=== PATIENT | female | born 1960 ===

== ENCOUNTER 2016-05-20 15:58 | Emergency (ER) | payer BC ==
[2016-05-20 16:05] VITALS: RESP 16; TEMP 98.4; O2SAT 99
[2016-05-20 16:33] VITALS: BP 131/83; PULSE 86
[2016-05-20 17:03] LABS: BASO # 0.1 K/uL (0.0-0.2); BASO % 0.6 % (0.0-2.0); EOS % 0.2 % (0.0-4.0); HEMATOCRIT 35.3 % (34.0-47.0); LYMPH # 1.8 K/uL (1.0-4.3); LYMPH % 18.6 % (20.0-40.0); MEAN CORPUSCULAR HEMOGLOBIN 27.7 pg (27.0-31.0); MEAN CORPUSCULAR HGB CONC 32.2 g/dL (33.0-37.0); MEAN PLATELET VOLUME 8.2 fl (7.2-11.7); MONO # 0.5 K/uL (0.0-0.8); MONO % 5.7 % (0.0-10.0); NEUT # 7.1 K/uL (1.8-7.0); NEUT % 74.9 % (50.0-75.0); RED CELL DISTRIBUTION WIDTH 17.4 % (11.5-14.5); WHITE BLOOD COUNT 9.4 K/uL (4.8-10.8)
--- NOTE | 2016-05-20 17:03 | ED PDOC ---
HPI: Chest Pain Time Seen by Provider: 05/20/16 16:24 Chief Complaint (Nursing): Palpitations Chief Complaint (Provider): Palpitations History Per: Patient History/Exam Limitations: no limitations Onset/Duration Of Symptoms: Hrs Additional Complaint(s): 16:24 Giovana Plunkett is a 55 year old female with no past medical history that is accompanied by her daughter and presents to the ED with a chief complaint of palpitations. Patient's daughter states that while the patient was at work today, she got into an argument with one of her coworkers, which resulted in her crying for a long amount of time. Patient began to experience chest pain and a headache, so she went to her PMD Dr. Perez, who told the patient that her blood pressure was at 180, and referred her to the ED for further care. Past Medical History Reviewed: Historical Data, Nursing Documentation, Vital Signs Vital Signs: Last Vital Signs Temp 98.4 F 05/20/16 16:04 Pulse 86 05/20/16 16:32 Resp 16 05/20/16 16:04 BP 131/83 05/20/16 16:32 Pulse Ox 99 05/20/16 18:19 - Medical History PMH: No Chronic Diseases - Family History Family History: States: Unknown Family Hx - Social History Current smoker - smoking cessation education provided: No Alcohol: None - Immunization History Hx Tetanus Toxoid Vaccination: No Hx Influenza Vaccination: No Hx Pneumococcal Vaccination: No - Home Medications Home Medications: Ambulatory Orders Medication Instructions Recorded No Known Home Med 05/20/16 - Allergies Allergies/Adverse Reactions: Allergies Allergy/AdvReac Type Severity Reaction Status Date / Time No Known Allergies Allergy Verified 05/20/16 16:04 CORINNE Risk Score for UA/NSTEMI - CORINNE Risk Score Age > 64: NO 3 or more CAD Risk Factors: NO Known CAD (Stenosis greater than 50%): NO Aspirin use in past 7 days: NO Severe Angina: NO EKG ST changes greater than 0.5mm: NO Positive Cardiac Marker: NO CORINNE Score: 0 Risk %: 5% Wells Criteria for PE - Wells Criteria for Pulmonary Embolism Clinical Signs and Symptoms of DVT: No P.E is #1 Diagnosis, or Equally Likely: No Heart Rate >100: No Immobilization at least 3 days;Surgery previous 4 weeks: No Previous, objectively diagnosed PE or DVT: No Hemoptysis: No Malignancy w/treatment within 6 months, or palliative: No Total Score: 0 Review of Systems Cardiovascular: Positive for: Chest Pain Neurological: Positive for: Headache Physical Exam - Reviewed Nursing Documentation Reviewed: Yes Vital Signs Reviewed: Yes - Physical Exam Appears: Positive for: Non-toxic, No Acute Distress Head Exam: Positive for: ATRAUMATIC, NORMOCEPHALIC Skin: Positive for: Normal Color, Warm Eye Exam: Positive for: Normal appearance Cardiovascular/Chest: Positive for: Regular Rate, Rhythm. Negative for: Murmur Respiratory: Positive for: Normal Breath Sounds. Negative for: Wheezing Neurologic/Psych: Positive for: Alert, Oriented - Laboratory Results Result Diagrams: 05/20/16 16:59 05/20/16 16:59 - ECG O2 Sat by Pulse Oximetry: 99 (RA) Pulse Ox Interpretation: Normal Medical Decision Making Medical Decision Makin:44 Initial Impression: Palpitations as a Result of Anxiety Attack Initial Plan: * CMP * CBC * TSH * PTT * PT * Troponin * D-Dimer * Urine dip * Urinalysis * Chest X-Ray * Tylenol 650 mg PO * Reevaluation 18:10 EKG reviewed, NSR at 84, no ST changes. Copy of labs, EKG and CXR given to patient. Scribe Attestation: Documented by Zulema Carrasco, acting as a scribe for Salome Giles MD. Provider Scribe Attestation: All medical record entries made by the Scribe were at my direction and personally dictated by me. I have reviewed the chart and agree that the record accurately reflects my personal performance of the history, physical exam, medical decision making, and the department course for this patient. I have also personally directed, reviewed, and agree with the discharge instructions and disposition. Disposition - Clinical Impression Clinical Impression: Palpitations - Disposition Referrals: Ambreen Perez [Staff Provider] - Disposition: Routine/Home Disposition Time: 18:05 Condition: IMPROVED Instructions: Palpitations (ED) Forms: [facility] ED School/Work Excuse Print Language: KAZAKH
[2016-05-20 17:15] LABS: BLOOD UREA NITROGEN 14 mg/dl (7-17); CALCIUM 9.5 mg/dL (8.4-10.2); CARBON DIOXIDE 25 mmol/L (22-30); CHLORIDE 103 mmol/L (98-107); GFR AFRICAN-AMERICAN > 60; GLUCOSE,RANDOM 112 mg/dL (65-105); POTASSIUM 3.7 MMOL/L (3.6-5.0); SODIUM 144 mmol/l (132-148); TOTAL PROTEIN 8.1 G/DL (6.3-8.2)
[2016-05-20 17:16] LABS: ALB/GLOB RATIO 1.3 (1.0-2.1); ALKALINE PHOSPHATASE 93 U/L (38-126); ALT/SGPT 33 U/L (9-52); AST/SGOT 25 U/L (14-36); BILIRUBIN,TOTAL 0.4 mg/dl (0.2-1.3)
[2016-05-20 17:26] LABS: RBC URINE 5 /hpf (0-3); URINE BACTERIA OCC (<OCC); URINE BILIRUBIN NEGATIVE (NEGATIVE); URINE BLOOD MODERATE (NEGATIVE); URINE COLOR YELLOW (YELLOW); URINE GLUCOSE (UA) NEG (Normal); URINE KETONE NEGATIVE (NEGATIVE); URINE LEUKOCYTE ESTERASE NEG Leu/uL (Negative); URINE PROTEIN NEGATIVE (NEGATIVE); URINE UROBILINOGEN 0.2-1.0 mg/dL (0.2-1.0); WBC URINE 3 /hpf (0-5)
[2016-05-20 17:40] LABS: PARTIAL THROMBOPLASTIN TIME 25.7 SECONDS (23.3-32.5)
[2016-05-20 17:50] LABS: THYROID STIMULATING HORMONE 0.95 mIU/ML (0.46-4.68)
--- NOTE | 2016-05-20 17:54 | RAD ---
HISTORY: Palpitations COMPARISON: No prior. FINDINGS: LUNGS: The lungs are well inflated and clear. PLEURA: No significant pleural effusion identified, no pneumothorax apparent. CARDIOVASCULAR: Normal. OSSEOUS STRUCTURES: No significant abnormalities. VISUALIZED UPPER ABDOMEN: Normal. OTHER FINDINGS: None. IMPRESSION: No active pulmonary disease.
--- NOTE | 2016-05-21 11:18 | CARD ---
APPROVED REPORT EKG Measurement Heart [id number] <Conclusion> Normal sinus rhythm Normal ECG
== END 2016-05-20 18:36 | disposition home or self-care (01) ==
LOC: H.ER 15:58
DX: R00.2 Palpitations (principal); R07.9 Chest pain, unspecified; R51 Headache